=== PATIENT | female | born 1960 | race Caucasian/White ===

== ENCOUNTER → 2018-03-27 | Day surgery (SDC) | payer BC ==
[2018-03-23 13:32] LABS: INR 0.94; PARTIAL THROMBOPLASTIN TIME 31.2 seconds (23.8-35.5); PROTHROMBIN TIME 13.4 seconds (11.9-14.5)
[~2018-03-27] MED LIST: ATENOLOL50 MG PO; BUPIVACAINE HCL 0.5% INJ 30 ML VIAL INJ ONE; CEFAZOLIN SOD 1 GM VIAL ONE; FENTANYL CITRATE/PF 100MCG/2 ML INJ ONE; LEVOTHYROXINE88 MCG PO; LIDOCAINE HCL 2% LOCAL INJ 5 ML SDV VIAL INJ ONE; MIDAZOLAM HCL 2 MG/2 ML VIAL ONE; MULTI-VITAMIN1 EACH PO; NORCO 7.5-3251 EACH PO; ONDANSETRON HCL INJ 2 MG/ML VIAL ONE; PRAVASTATIN SOD10 MG PO; PRAVASTATIN SOD20 MG PO; PROPOFOL IV EMULSION 10 MG/ML 20 ML VIAL ONE; SEVOFLURANE INHAL SOLN 250 ML PEN BTL ONE; VIT D PO
--- OUTSIDE RECORDS SUMMARY | 2018-03-27 05:11 | XMS REPORT | Clinical Summary ---
Author Author [employer] Address Unknown Phone Unavailable Care Team Providers Care Linen Room Houseperson Name Role Phone Chetan Padilla MD PCP Allergies No Known Allergies Medications End Date Status Medication Sig Dispensed Refills Start Date Active levothyroxine (SYNTHROID, Take 88 mcg 0 LEVOXYL) 88 mcg tablet by mouth daily. Active pravastatin (PRAVACHOL) Take 20 mg by 0 20 MG tablet mouth daily. 8 Active atenolol (TENORMIN) 50 MG Take 50 mg by 0 tablet mouth daily. 8 Active multivitamin with Take 1 tablet 0 minerals tablet by mouth daily. Active Problems Problem Noted Date Essential hypertension 12/28/2017 Heart murmur 12/28/2017 Dyslipidemia 12/28/2017 Encounters Care Team Description Date Type Specialty Mejia Matthews MD Heart murmur (Primary Dx); Dyslipidemia; Essential hypertension 12/28/2017 Office Visit Cardiology after 03/26/2017 Family History Medical History Relation Name Comments No Known Problems Father Hypertension Mother Leukemia Mother Relation Name Status Comments Father Mother Social History Date Tobacco Use Types Packs/Day Years Used Quit: 12/28/1982 Former Smoker Cigarettes Smokeless Tobacco: Never Used Alcohol Use Drinks/Week oz/Week Comments No Sex Assigned at Date Recorded Not on file Industry Job Start Date Occupation Not on file Not on file Not on file Travel End Travel History Travel Start No recent travel history available. Last Filed Vital Signs Time Taken Vital Sign Reading 01/05/2018 11:32 AM CDT Blood Pressure 133/78 01/05/2018 11:32 AM CDT Pulse 56 - Temperature - - Respiratory Rate - 01/05/2018 11:32 AM CDT Oxygen Saturation 99% - Inhaled Oxygen - Concentration 12/28/2017 3:22 PM CDT Weight 78 kg (172 lb) 12/28/2017 3:22 PM CDT Height 167.6 cm (5' 6") 12/28/2017 3:22 PM CDT Body Mass Index 27.76 Plan of Treatment Care Team Description Date Type Specialty Mejia Matthews MD [address] [address] [phone] 07/04/2018 Office Visit Cardiology Health Maintenance Due Date Last Done Comments MMR VACCINES (1 of 1 - 1962 Standard series) VARICELLA VACCINES (1 of 1974 2 - 2-dose adolescent series) CERVICAL CANCER SCREENING 1982 BREAST CANCER SCREENING 12/14/2011 COLON CANCER SCREENING 12/14/2011 SHINGRIX VACCINE (1 of 2) 12/14/2011 INFLUENZA VACCINE 12/06/2017 HEPATITIS B VACCINES Aged Out No longer eligible based on patient's age to complete this topic IPV VACCINES Aged Out No longer eligible based on patient's age to complete this topic MENINGOCOCCAL VACCINE Aged Out No longer eligible based on patient's age to complete this topic Procedures Comments Procedure Name Priority Date/Time Associated Diagnosis ECHOCARDIOGRAM 2D Routine 01/05/2018 Heart murmur COMPLETE W MMODE SPECTRAL 11:33 AM CDT COLOR DOPPLER (92806) LIPID PANEL Routine 12/28/2017 Dyslipidemia 4:22 PM CDT ECG 12-LEAD Routine 12/28/2017 Heart murmur 3:35 PM CDT after 03/26/2017 Results * Echocardiogram complete w contrast and 3D if needed (01/05/2018 11:33 AM CDT) Narrative Performed At [facility] Echocardiography Report Pat.Name:Cain HENDERSON.ID:[id number] St.Date: 01/05/2018 Refer.MD:MEJIA MATTHEWS MD Exam Time: 10:57:00 AM Study Type:Routine Echo Height:66inWeight:172lb BSA: 1.88 m2 DOBAge:1960,57Y Sex: FEMALEBP:133/78 HR:56 bpm Sonogrphr: Kumuthavally Veerasamy, RDCS, RVS Pat. Stat.:OutpatientRoom:[facility] TapeVol: MDCA, ICD - 9: R01.1 Study Status:Final Echo Event ID:[id number] Order ID:[id number] Reason for Study:Heart Murmur Procedures:2D Echo, Colorflow Doppler Race: SUMMARY: LV EF is hyperdynamic. RV systolic function is normal. Mild aortic regurgitation. FINDINGS: LV: LV size is normal. Concentric left ventricular remodeling. LVEF is hyperdynamic. Overall wall motion is hyperdynamic. EstimatedEF is >70%. RV: RV size is normal. RV systolic function is normal. RV wall motionis normal. LA: LA size is normal. RA: RA size is normal. AO: Aortic root diameter is normal. ZEINA: No pericardial effusion. AV: Mild thickening and calcification of AV leaflets. Mild aorticregurgitation. MV: Thickened and/or calcified chordae. A trace of mitral regurgitation. PV: No structural PV abnormalities noted. TV: No structural TV abnormalities noted. A trace of tricuspid regurgitation Cottrell: LV relaxation is impaired. LV filling pressure is normal. Other:Insufficient TR jet to estimate PA systolic pressure. MEASUREMENTS: 2D [place] Ao An2.1 cmLVPWd1 cm LVOT 1.9 cmLA Ds3.5 cm LVIDd4 cmIndex2.1 cm/m Ao Rtd 3.2 cm Index1.7 cm/m LVIDs2.2 cmLV Cbpp922.1 g(87-129) LV%fs 45.8 % LVM Index 96.9 g/m2 IVSd 1.5 cmRWT0.5 LA Volume LA Vol57 eeQkrqm83.3 ml/m DOPPLER LVOT Stroke Vol LVOT 1.9 cmLVOT CO5.2 l/min LVOT TVI34.3 cmLVOT CI2.7 l/m/m2 LVOT Tm335 mhtsJO13 bpm LVOT SV 97.2 ml Signed 01/09/2018 02:30 PM Torie Oneil M.D. Procedure Note Interface, Radiology Results In - 01/09/2018 2:30 PM CDT [facility] Echocardiography Report Pat.Name: NGOZI HENDERSON.ID: [id number] St.Date: 01/05/2018 Refer.MD: MEJIA MATTHEWS MD Exam Time: 10:57:00 AM Study Type:Routine Echo Height: 66in Weight: 172lb BSA: 1.88 m2 Age: 8 1960,57Y Sex: FEMALE BP: 133/78 HR: 56 bpm Sonogrphr: Lonnie Redmond, RDCS, RVS Pat. Stat.:Outpatient Room: [address] [place]: [facility] [place] ICD - 9: R01.1 Study Status:Final Echo Event ID:[id number] Order ID: [id number] Reason for Study:Heart Murmur Procedures:2D Echo, Colorflow Doppler Race: SUMMARY: LV EF is hyperdynamic. RV systolic function is normal. Mild aortic regurgitation. FINDINGS: LV: LV size is normal. Concentric left ventricular remodeling. LV EF is hyperdynamic. Overall wall motion is hyperdynamic. Estimated EF is >70%. RV: RV size is normal. RV systolic function is normal. RV wall motion is normal. LA: LA size is normal. RA: RA size is normal. AO: Aortic root diameter is normal. ZEINA: No pericardial effusion. AV: Mild thickening and calcification of AV leaflets. Mild aortic regurgitation. MV: Thickened and/or calcified chordae. A trace of mitral regurgitation. PV: No structural PV abnormalities noted. TV: No structural TV abnormalities noted. A trace of tricuspid regurgitation Cottrell: LV relaxation is impaired. LV filling pressure is normal. Other: Insufficient TR jet to estimate PA systolic pressure. MEASUREMENTS: 2D Parasternal [place] Ao An 2.1 cm LVPWd 1 cm LVOT 1.9 cm LA Ds 3.5 cm LVIDd 4 cm Index 2.1 cm/m Ao Rtd 3.2 cm Index 1.7 cm/m LVIDs 2.2 cm LV Mass 182.1 g (87-129) LV%fs 45.8 % LVM Index 96.9 g/m2 IVSd 1.5 cm RWT 0.5 LA Volume LA Vol 57 ml Index 30.3 ml/m DOPPLER LVOT Stroke Vol LVOT 1.9 cm LVOT CO 5.2 l/min LVOT TVI 34.3 cm LVOT CI 2.7 l/m/m2 LVOT Tm 335 msec HR 53 bpm LVOT SV 97.2 ml Signed 01/09/2018 02:30 PM Torie Oneil M.D. Performing Organization Address City/State/Zipcode Phone Number [facility] [phone] [place] [address] * Lipid panel (12/28/2017 4:22 PM CDT) Cholesterol, total 167 <200 mg/dL [facility] [place] HDL cholesterol 58 >50 mg/dL [facility] [place] Triglycerides 102 <150 mg/dL [facility] [place] LDL cholesterol 89 mg/dL (calc) [facility] calculated Comment: [place] Reference range: <100 Desirable range <100 mg/dL for primary prevention; <70 mg/dL for patients with CHD or diabetic patients with > or=2 CHD risk factors. LDL-C is now calculated using the Gil calculation, which is a validated novel method providing better accuracy than the Friedewald equation in the estimation of LDL-C. Dre SS et al. BLAISE. 2013;310(19): 5466-2370 (http://education.Overhead.fm.CRITICAL TECHNOLOGIES/faq/FPD754) Cholesterol/HDL ratio 2.9 <5.0 (calc) [facility] [place] Non-HDL cholesterol 109 <130 mg/dL (calc) [facility] Comment: [place] For patients with diabetes plus 1 major ASCVD risk factor, treating to a non-HDL-C goal of <100 mg/dL (LDL-C of <70 mg/dL) is considered a therapeutic option. Specimen Blood Narrative Performed At FASTING:NO [facility] FASTING: NO Resulting Agency Comment Performing Organization Information: Site ID: [email or web address] Address: [address] [place] [id number] Director: Sheila Stein Performing Organization Address City/[facility] Phone Number [facility] [place] [phone] * ECG 12 lead (12/28/2017 3:35 PM CDT) Ventricular rate 57 [facility] Atrial rate 57 [facility] IA interval 148 [facility] QRSD interval 92 [facility] QT interval 440 [facility] QTC interval 428 [facility] P axis 1 39 [facility] QRS axis 1 73 [facility] T wave axis 51 [facility] EKG impression Sinus bradycardia-Otherwise [facility] normal ECG-No previous ECGs available- Performing Organization Address City/[facility] Phone Number [facility] [address] [place] [address] after 03/26/2017 Insurance Payer Benefit Subscriber ID Type Phone Address Plan / Group BCBS BCBS xxxxxxxxxxxxxxx PPO CHOICE PPO/[employer] ([place]) [place] [address] Advance Directives Patient has advance care planning documents on file. For more information, aliya novak contact: Rony Bello [address] [place] [address]
--- OUTSIDE RECORDS SUMMARY | 2018-03-27 05:11 | XMS REPORT | Summary of Care ---
Author Author Rosaura Kendrick M.A. Unknown Address [facility] Phone Unavailable Care Team Providers Care Customer Data Technician Name Role Phone LISA Goddard, ALAN Unavailable Unavailable LUCIANO P.A., SOPHIE Unavailable Unavailable RUSSELL P.A., BRIANNE Unavailable Unavailable Dusty GENAON, Jeimy Unavailable Unavailable LUIS WHITEHEAD [place], FRANCES OBANDO Unavailable Unavailable LUIS Goddard, FRANCES Martinez Unavailable Unavailable Unavailable Functional Status Name Dates Details Functional status health issues are not documented Status: Name Dates Details Cognitive status health issues are not documented Status: Problems Name Dates Details Acute recurrent sinusitis (461.9, J01.91) Status: Active Osteopenia (733.90, M85.80) Status: Active Acute pharyngitis due to other specified organisms (462, J02.8) Status: Active Upper respiratory infection, acute (465.9, J06.9) Status: Active Influenza vaccine needed (V04.81, Z23) Status: Active Acid indigestion (536.8, K30) Status: Active Mass of shoulder region (719.61, R22.30) Status: Active Ankle pain (719.47, M25.579) Status: Active Trigger finger, acquired (727.03, M65.30) Status: Active Pain, hand (729.5, M79.643) Status: Active Hypothyroidism (244.9, E03.9) Status: Active Acute frontal sinusitis (461.1, J01.10) Status: Active Allergic rhinitis, seasonal (477.9, J30.2) Status: Active Essential (primary) hypertension (401.9, I10) Status: Active Hyperlipidemia (272.4, E78.5) Status: Active Snoring (786.09, R06.83) Status: Active Other fatigue (780.79, R53.83) Status: Active H/O discectomy (V45.89, Z98.890) Status: Active Numbness of arm (782.0, R20.0) Status: Active Medications Name Dates Details Levothyroxine Sodium 88 MCG Oral Tablet TAKE ONE TABLET BY MOUTH ONCE DAILY Quantity: 30 RUSSELL P.A., BRIANNE * Start : 08-Oct-2014 Active Atenolol 50 MG Oral Tablet TAKE ONE TABLET BY MOUTH ONCE DAILY * Quantity: 90 Refills: 1 LUCIANO P.A., SOPHIE * Start : 08-Oct-2014 Active Multi-Vitamins TABS TAKE 1 TABLET DAILY. * Refills: 0 Active Vitamin D TABS TAKE 1 TABLET DAILY * Refills: 0 Active Pravastatin Sodium 20 MG Oral Tablet TAKE ONE TABLET BY MOUTH ONE TIME DAILY * Quantity: 90 Refills: 1 LUCIANO P.A., SOPHIE * Start : 14-Nov-2014 Active Vitamin C TABS TAKE 1 TABLET DAILY. * Refills: 0 Active Vitamin B12 TABS TAKE 1 TABLET DAILY DIRECTED. * Refills: 0 Active COMPOUND MEDICATION AIFLURBIPROFEN 10%,AMANTADINE 10%,CYCLOBENZAPRINE 2%,BACLOFEN 2%,GABAPENTIN 6%,L IDOCAINE 2%RODRIGO. TO AFF. AREA 1-2GM 3-4X DAILY OWO217TG * Quantity: 1 Refills: 5 ALAN GONZALEZ M.D. * Start : 20-Nov-2015 Active Fluticasone Propionate 50 MCG/ACT Nasal Suspension USE 1 SPRAY IN EACH NOSTRIL TWICE A DAY * Quantity: 1 Refills: 2 RUSSELL P.A., BRIANNE * Start : 09-Jun-2017 Active 9.9 ML Bottle Allergies and Adverse Reactions Name Dates Details No Known Drug Allergies (Allergy) Status: Active Past Medical History Name Dates Details History of backache (V13.59, Z87.39) Status: Resolved History of osteopenia (V13.59, Z87.39) Status: Resolved Procedures Procedure Dates Details MRI Spine cervical w/wo contrast 32154 Date: 05-Mar-2018 History of Hysterectomy Completed History of Cholecystectomy Completed Immunization Name Dates Details Fluzone Quadrivalent Intramuscular Suspension Lot #: [id number] on: 26-Feb-2015 Fluzone Quadrivalent 0.5 ML Intramuscular Suspension Prefilled Syringe on: 05-Feb-2018 Family History Name Dates Details Family history of Breast Cancer (V16.3) Status: Active Name Dates Details Family history of Leukemia (V16.6) Status: Active Name Dates Details Family history of Coronary Artery Disease (V17.49) Status: Active Social History Name Dates Details - Status: Name Dates Details Former smoker Vital Signs Date Test Result Details [id number] BP Systolic 113 mm[Hg] Status: Comments: Location: LUE; Position: Sitting BP Diastolic 72 mm[Hg] Status: Comments: Location: LUE; Position: Sitting Height 65 in Status: Weight 174.0 lb Status: Body Mass Index Calculated 28.96 kg/m2 Status: Body Surface Area Calculated 1.86 m2 Status: Temperature 97.8 f Status: Comments: Method: Temporal Heart Rate 56 /min Status: Comments: Location: L Brachial Artery; Results Date Description Value Details Results not documented Plan of Care Name Dates Details Planned Observations Planned Goals not documented Planned Encounters Neurosurgery Referral Instructions Name Dates Details Instructions not documented Encounters Appointment; BRIANNE WELLS P.A. Encounter Diagnosis: Problem not documented On: 20-Apr-2016 9:00 Appointment; SOPHIE LUCIANO P.A. Encounter Diagnosis: Problem not documented On: 11-Nov-2016 9:15 Appointment; BRIANNE WELLS PAnabel Encounter Diagnosis: Problem not documented On: 09-Jun-2017 9:00 Appointment; SOPHIE LUCIANO P.A. Encounter Diagnosis: Problem not documented On: 07-Dec-2017 7:45 Appointment; SOPHIE LUCIANO P.A. Encounter Diagnosis: Problem not documented On: 05-Mar-2018 12:45
--- NOTE | 2018-03-27 09:38 | Operative Report ---
DATE OF PROCEDURE: March 27, 2018 PREOPERATIVE DIAGNOSIS: Left carpal tunnel syndrome. POSTOPERATIVE DIAGNOSIS: Left carpal tunnel syndrome. PROCEDURE: Left carpal tunnel release. ANESTHESIA: General. INDICATIONS: Patient is a 57-year-old woman who presents with severe left carpal tunnel syndrome. She was taken to the operating room for left carpal tunnel release. PROCEDURE: After induction of general anesthesia, the patient was placed on the operating table in the supine position with the left arm abducted over a hand table. The left hand, wrist and forearm were prepped and draped circumferentially in a sterile fashion. A tourniquet was inflated over the upper arm to 250 mmHg. A small midline incision was created over the median palmar crease of the hand just distal to the distal flexor crease of the wrist. The subcutaneous fat was divided. Transverse carpal ligament was identified and incised with a #15 C-blade until the underlying median nerve came into view. As the power plant assistant retracted the skin edges, the transverse carpal ligament was divided proximally and distally until the full thickness of the ligament had been divided and the full length of the median nerve within the carpal tunnel was exposed and decompressed. More distally, the recurrent motor branch of the nerve was preserved within its fat pad. The wound was irrigated with Bacitracin solution. Hemostasis was secured. The subcutaneous layer was closed with 3-0 Vicryl suture. The skin was closed with 3-0 nylon suture in a horizontal mattress fashion. A dressing was applied. The patient was awakened, extubated, and taken to the postanesthesia care unit in stable condition. No intraoperative complications were encountered. Estimated blood loss was minimal. Job#: [id number]
[2018-03-27 10:10] VITALS: BP 117/78
== END | disposition home or self-care (01) ==
LOC: OR 05:09
PROVIDERS: ATTEND Neurological Surgery
DX: G56.02 Carpal tunnel syndrome, left upper limb (principal); M19.90 Unspecified osteoarthritis, unspecified site; G47.30 Sleep apnea, unspecified; I10 Essential (primary) hypertension; E78.5 Hyperlipidemia, unspecified; R01.1 Cardiac murmur, unspecified; E03.9 Hypothyroidism, unspecified; R00.1 Bradycardia, unspecified; Z01.810 Encounter for preprocedural cardiovascular examination; Z01.812 Encounter for preprocedural laboratory examination
CPT/HCPCS: 36415; 64721; 85610; 85730; 93005; J0690; J2001; J2250; J2405; J2704